=== PATIENT | male | born 1980 | race African-American/Black ===

== ENCOUNTER → 2021-12-28 | Outpatient (CLI) | payer MEDICAID, MEDICARE ==
--- NOTE | 2021-12-28 11:14 | Diagnostic Imaging Report ---
INDICATION: PAIN IN LEFT HIP TECHNIQUE: 2 views of the left hip. CORRELATION STUDY: None FINDINGS: Marked deformity about the left hip joint. There is a volume loss of particularly superior and central aspect of the left femoral head with partial collapse and cystic change. Involves the superior half of the femoral head. There is marked distortion with significant loss of joint space. A nearly vlmg-xp-zmah is present particularly superiorly. Overhanging osteophytes of the acetabulum. IMPRESSION: 1. Marked chronic deformity left hip. Imaging features favor probable rather advanced osteonecrosis left femoral head with partial collapse and volume loss of the femoral head. Associated is relatively advanced degenerative changes of the left hip. Dictated by: Dictated on workstation # [id number]
== END ==
LOC: ORTHO 10:50
PROVIDERS: ATTEND Orthopaedic Surgery
DX: M16.12 Unilateral primary osteoarthritis, left hip (principal)
CPT/HCPCS: 73502; 99203

== ENCOUNTER 2022-01-17 05:51 | Day surgery (SDC) | payer MEDICAID ==
[2022-01-17] VITALS (13 sets, daily range): BP systolic 99–144; BP diastolic 58–95
[~2022-01-17] VITALS: Ht 175 cm; Wt 68.2 kg
[~2022-01-17 05:51] MED LIST: DIVA250T2 PO; MELO10CA3 PO; SERT-413 PO
[2022-01-17] MEDS ORDERED: ceFAZolin INJECTION 1,000 MG VIAL IV ONE (06:15)
[2022-01-17] MEDS ORDERED: LACTATED RINGERS 1,000 ML IV PRN (06:15)
[2022-01-17] MEDS ORDERED: TRANEXAMIC ACID 3,000 MG/150 ML NS IRRIGATION IR ONE ×2 (06:45)
[2022-01-17] MEDS ORDERED: MIDAZOLAM 2 MG/2 ML (VERSED) VIAL ONE ×2 (07:03→07:12)
[2022-01-17] MEDS ORDERED: ONDANSETRON 4 MG/2 ML (SDV) Z0FRAN ONE (07:03)
[2022-01-17] MEDS ORDERED: fentaNYL INJ 100 MCG/2 ML AMP ONE ×2 (07:03→08:41)
[2022-01-17] MEDS ORDERED: SEVOFLURANE (ULTANE) 15 ML INHAL SOLN ONE ×2 (07:03→09:54)
[2022-01-17] MEDS ORDERED: LIDOCAINE PF 2% 5 ML (XYLOCAINE) VIAL ONE (07:03)
[2022-01-17] MEDS ORDERED: proPOfol 200 MG/20 ML (DIPRIVAN) VIAL IV ONE (07:03)
[2022-01-17] MEDS ORDERED: ROCURONIUM 50 MG/5 ML (ZEMURON) VIAL IV ONE (07:03)
--- NOTE | 2022-01-17 07:12 | Progress Note-Pre Operative ---
Pre-Operative Progress Note Date of Available H&P: Dec 28, 2021 Date H&P Reviewed: Jan 17, 2022 Time H&P Reviewed: 07:05 History & Physical: H&P Reviewed, Patient Examed, No changes noted Pre-Operative Diagnosis: Left Hip Avascular Necrosis MARY JAVIER MD Jan 17, 2022 07:12
[2022-01-17] MEDS ORDERED: MIDAZOLAM 2 MG/2 ML (VERSED) VIAL IVP ONE (07:15)
--- NOTE | 2022-01-17 08:48 | Diagnostic Imaging Report ---
INDICATION: Preoperative evaluation, prior left hip surgery. Left hip pain. COMPARISON: 12/28/2021 FINDINGS: 2 radiographic views of the left hip were obtained. There are advanced osteoarthritic changes consistent of severe joint space narrowing with mixed sclerotic and subchondral cystic changes of the articular surfaces, particularly involving the femoral head. Prominent osteophytes are also noted. No acute osseous abnormality is seen. No unexpected radiopaque foreign bodies are identified. IMPRESSION: 1. Advanced osteoarthritic changes of the left hip, but no acute fracture or dislocation. Dictated by: Dictated on workstation # [id number]
--- NOTE | 2022-01-17 10:12 | Anesthesia-General Post-Op ---
General Patient Condition Mental Status/LOC: Same as Preop Cardiovascular: Satisfactory Nausea/Vomiting: Absent Respiratory: Satisfactory Pain: Controlled Complications: Absent Post Op Complications Complications None Follow Up Care/Instructions Patient Instructions None needed. Anesthesia/Patient Condition Patient Condition Patient is doing well, no complaints, stable vital signs, no apparent adverse anesthesia problems. No complications reported per nursing. BRENNAN BLAKE CRNA Jan 17, 2022 10:12
[2022-01-17] MEDS ORDERED: MILK OF MAGNESIA 400 MG/5 ML 30 ML UDC PO PRN (10:15)
[2022-01-17] MEDS ORDERED: morphine INJ 10 MG/ML 1ML (SYR OR VIAL) IVP ONE (10:15)
[2022-01-17] MEDS ORDERED: ACETAMINOPHEN 500 MG TAB (TYLENOL) PO PRN (10:15)
[2022-01-17] MEDS ORDERED: ONDANSETRON 4 MG/2 ML (SDV) Z0FRAN IV PRN (10:15)
[2022-01-17] MEDS ORDERED: MEPERIDINE (DEMEROL) INJ 50 MG/ML IVP ONE (10:15)
[2022-01-17] MEDS ORDERED: BISACODYL 5 MG (DULCOLAX) TABLET PO PRN (10:15)
[2022-01-17] MEDS ORDERED: ONDANSETRON 4 MG/2 ML (SDV) Z0FRAN IVP PRN (10:15)
--- NOTE | 2022-01-17 10:15 | Operative Report - Ortho ---
Operative Report Surgeon (s)/Lens Grinder Apprentice (s) Surgeon MARY JAVIER MD Lens Grinder Apprentice n/a Pre-Operative Diagnosis Left Hip Avascular Necrosis Post-Operative Diagnosis same Operative Report Date of Procedure: Jan 17, 2022 Name of Procedure Performed: Left Total Hip Arthroplasty Description & Findings After obtaining informed consent and marking the patient in the preoperative holding area, the patient did receive antibiotics and was taken to the operating room. General anesthesia was induced and patient was positioned in the lateral decubitus position with the left side up. Left lower extremity was prepped and draped in the usual sterile fashion. Surgical timeout was taken. Posterolateral approach was utilized. Capsule and external rotators were taken down in one layer. Hip was dislocated without difficulty. Femoral neck osteotomy was performed and femoral head was removed. Acetabulum was exposed. Labrum and soft tissue was removed from the acetabulum. Sequential reaming was began beginning with a 47 mm reamer and reaming to a 52 mm. 52 mm trial was placed and had good fit. Trial was removed and the acetabulum was lavaged with normal saline; a 52 mm cup was impacted into place and had excellent press fit. A trial liner was put into place. Attention was turned to the femoral side, a [employer] cutter osteotome was used to removed bone near the greater trochanter. Canal finder was inserted followed by the lateralizing reamer. Sequential broaching was began with a 0 and was broached to a 5. Trial 127 degree neck and -5 mm head were put into place. Hip was located and was found to have leg lengths that were grossly equal; the hip was stable in position of sleep, and stable in flexion and internal rotation. This was accepted. Hip was dislocated. Acetabulum was exposed. Trial liner was removed and a polyethylene liner was locked into place; freer was used to check the locking mechanism. Attention was turned back to the femur, broach was removed and the canal was irrigated. A size 5 Accolade II was impacted into place and set at the same level as the broach. A -5 mm ceramic head was impacted onto the jones taper of the stem. Hip was once again located and found to have grossly equal leg lengths with stability in position of sleep as well as flexion and internal rotation. A dilute betadine soak was performed followed by irrigation. Tranexamic acid was applied for hemostasis. Capsular repair was performed with #2 fiberwire. The fascial layer was closed with #2 Stratafix. The subcutaneous layer was closed with 2-0 Vicryl. Skin was closed with V-loc. Wound was dressed with steri-strips, xeroform, 4x4s, ABD, and tape. Patient was placed in abduction pillow and transferred to his hospital bed without difficulty and was stable to the recovery room. Anesthesia Type General Estimated Blood Loss 200 ml Specimen(s) collected/removed None MARY JAVIER MD Jan 17, 2022 10:15
[2022-01-17] MEDS ORDERED: morphine INJ 10 MG/ML 1ML (SYR OR VIAL) ONE (10:16)
--- NOTE | 2022-01-17 10:33 | Diagnostic Imaging Report ---
INDICATION: Status post left hip replacement COMPARISON: Earlier same day FINDINGS: Single AP view of the pelvis was obtained. There are expected postsurgical changes of interval left total hip arthroplasty. There is appropriate anatomic alignment of the femoral component in relation to the acetabular component. Acetabular component appears well seated. The stem of the femoral component is located centrally in the medullary cavity. There is no periprosthetic fracture. No acute fracture or dislocation is identified. There is a small amount of subcutaneous emphysema in the surrounding soft tissues. No unexpected radiopaque foreign bodies identified. IMPRESSION: Expected postsurgical changes of interval left total hip arthroplasty. No unexpected radiopaque foreign body identified. Dictated by: Dictated on workstation # [id number]
[2022-01-17] MEDS ORDERED: HYDROmorphone 2 MG/ML VIAL (DILAUDID) ONE (10:53)
[2022-01-17] MEDS ORDERED: HYDROmorphone 2 MG/ML VIAL (DILAUDID) IV ONE (11:00)
[2022-01-17] MEDS ORDERED: NS IV 1000 ML 1,000 ML ONE (12:04)
[2022-01-17] MEDS: NS IV 1000 ML 1,000 ML IV SCH ×3 (12:08→20:11)
--- NOTE | 2022-01-17 13:56 | Physical Therapy Evaluation ---
PT Evaluation-General Medical Diagnosis Admission Date December Medical Diagnosis: left hip avascular necrosis Onset Date: Jan 17, 2022 Therapy Diagnosis Therapy Diagnosis: impaired mobility Precautions Precautions/Isolations: Fall Prevention, Standard Precautions Weight Bear Status Right Lower Extremity: Right Full Weight Bearing Left Lower Extremity: Left Weight Bearing/Tolerated posterior hip dislocation precautions Referral Physician: Bela Reason for Referral: Evaluation/Treatment Medical History History of Falls (past yr): No Prior Surgery (last 100 days): No Current History s/p left THR Reviewed History: Yes Social History Home: Single Level Current Living Status: Significant Other Entry Into Home: Stairs With Railing PT Steps Into Home: 5 Prior Prior Level of Function SCALE: Activities may be completed with or without assistive devices. 3-Mnytuckefx-ibrhyeu completes the activity by him/herself with no assistance from a helper. 5-Set-up or Clean-up Assistance-helper sets up or cleans up; patient completes activity. [place] assists only prior to or following the activity. 4-Supervision or Touching Assistance-helper provides verbal cues and/or touching/steadying and/or contact guard assistance as patient completes activity. Assistance may be provided throughout the activity or intermittently. 3-Partial/Moderate Assistance-helper does LESS THAN HALF the effort. [place] lifts, holds or supports trunk or limbs, but provides less than half the effort. 2-Substantial/Maximal Assistance-helper does MORE THAN HALF the effort. [place] lifts or holds trunk or limbs and provides more than half the effort. 8-Xsvmfulpm-zgghao does ALL the effort. Patient does none of the effort to complete the activity. Or, the assistance of 2 or more helpers is required for the patient to complete the activity. If activity was not attempted, code reason: 7-Patient Refused. 9-Not Applicable-not attempted and the patient did not perform the activity before the current illness, exacerbation or injury. 10-Not Attempted due to Environmental Limitations-(lack of equipment, weather restraints, etc.). 88-Not Attempted due to Medical Conditions or Safety Concerns. Bed Mobility: 6 Transfers (B,C,W/C): 6 Gait: 6 Stairs: 6 Indoor Mobility (Ambulation): Independent Stairs: Independent Prior Devices Use: Other-see list below Prior Device Use: cane PT Evaluation-Current Subjective Patient agrees to PT. Pain Numeric Pain Scale: 5-Moderate Pain Location: Left Location Body Site: Hip Pain Description: Acute Objective Patient Orientation: Normal For Age Attachments: Espinosa Catheter, IV abduction pillow ROM/Strength ROM Lower Extremities left posterior hip dislocation precautions/right LE WFL Strength Lower Extremities left LE 3-/5 grossly/right LE 4/5 grossly Integumentary/Posture Integumentary refer to nursing notes Bladder Incontinence: Espinosa Cath Posture WFL Neuromuscular (Tone, Coordination, Reflexes) grossly intact Sensory Vision: Functional Hearing: Functional Transfers Sit to Lying (QC): 3 Lying to Sitting/Side of Bed(Q: 3 Sit to Stand (QC): 4 Gait Mode of Locomotion: Walk Anticipated Mode of Locomotion: Walk Walk 10 feet (QC): 4 Walk 50 ft with 2 Turns(QC): 4 Distance: 50' Gait Assistive Device: FWW Comments/Gait Description minimal weight bearing left LE per patient choice/VC's for WBAT left LE Balance Sitting Static: Normal Sitting Dynamic: Normal Standing Static: Normal Standing Dynamic: Normal Assessment/Needs Patient will be seen short term by skilled PT to address functional strength and mobility to improve current LOF to ensure safe return to home with family at maximum LOF. Rehab Potential: Fair PT Capacity Management Specialist Goals Capacity Management Specialist Goals PT Senior Living Goals Time Frame: Jan 22, 2022 Roll Left & Right (QC): 6 Sit to Lying (QC): 6 Lying-Sitting on Side/Bed(QC): 6 Sit to Stand (QC): 6 Chair/Kah-xt-Sqyds Xfer(QC): 6 Toilet Transfer (QC): 6 Walk 10 feet (QC): 6 Walk 50ft with 2 Turns (QC): 6 Walk 150 ft (QC): 6 1 Step (curb) (QC): 6 4 Steps (QC): 6 PT Plan Problem List Problem List: Activity Tolerance, Safety, Bed Mobility Treatment/Plan Treatment Plan: Continue Plan of Care Treatment Plan: Bed Mobility, Education, Functional Activity Noé, Functional Strength, Gait, Safety, Therapeutic Exercise, Transfers Treatment Duration: Jan 22, 2022 Frequency: 11 times per week Estimated Hrs Per Day: .5 hour per day Patient and/or Family Agrees t: Yes Discharge Recommendations Therapy Discharge Recommendati: Home & Family Time/GCodes Time In: 1255 Time Out: 1312 Total Billed Treatment Time: 17 Total Billed Treatment 1 visit EVModC 17 min SAL MALONE PT Jan 17, 2022 13:56
[2022-01-17] MEDS: morphine INJ 4 MG/ML 1 ML (VIAL/SYRINGE) IVP PRN ×3 (15:16→23:35)
[2022-01-17] MEDS: ceFAZolin INJECTION 1,000 MG in NS (IVPB) 50 ML IV SCH ×2 (15:16→20:22)
[2022-01-17] MEDS: ASPIRIN E.C. 81 MG (ECOTRIN) TAB PO SCH (17:51)
[2022-01-17] MEDS: CELECOXIB 100 MG (CeleBREX) CAP PO SCH (20:21)
[2022-01-17] MEDS: DOCUSATE SODIUM 100 MG (COLACE) CAP PO SCH (20:22)
[2022-01-17] MEDS: MELATONIN 3 MG TABLET PO PRN (22:05)
[2022-01-18] VITALS (7 sets, daily range): BP systolic 102–135; BP diastolic 57–82
[2022-01-18] MEDS: RT-ALBUTEROL SULF 2.5 MG/3 ML PRE-MIX VIAL INH PRN (02:59)
[2022-01-18] MEDS: NS IV 1000 ML 1,000 ML IV SCH ×2 (04:01→12:24)
[2022-01-18] MEDS: morphine INJ 4 MG/ML 1 ML (VIAL/SYRINGE) IVP PRN ×4 (04:02→19:17)
[2022-01-18 05:49] LABS: HEMOGLOBIN 12.6 g/dL (13.3-17.7)
--- NOTE | 2022-01-18 08:15 | Progress Note - Ortho ---
Progress Note Subjective Date of Exam 01/18/22 Chief Complaint POD #1 L SYDNEE HPI/Events since last exam having some difficulty with pain, wants to be on side Review of Systems - Allergies: Coded Allergies: No Known Drug Allergies (Unverified , 01/11/22) Home Meds Reported Medications Sertraline HCl (Sertraline HCl) 50 Mg Tablet, 50 MG PO DAILY, TAB 01/11/22 Meloxicam, Submicronized (Meloxicam) 10 Mg Capsule, 15 MG PO, CAP 01/11/22 Divalproex Sodium (Depakote) Unknown Strength Tablet.dr, PO, TAB 01/11/22 Objective Exam L Hip: Dressing C/D/I, +DF of ankle, no s/s of DVT Vital Signs Vital Signs Date Time Temp Pulse Resp B/P (MAP) Pulse Ox O2 Delivery O2 Flow Rate FiO2 01/18/22 07:36 36.6 78 18 109/57 (74) 97 Room Air 01/18/22 07:07 99 Room Air 0.00 01/18/22 04:02 36.9 88 18 106/67 (80) 98 Room Air 01/18/22 03:00 99 Room Air 01/18/22 02:26 37.0 78 98 21 01/18/22 02:00 98 Room Air 0.00 01/17/22 23:59 37.0 78 18 102/69 (80) 98 Room Air 01/17/22 21:31 Room Air 0.00 01/17/22 20:21 Room Air 01/17/22 19:52 36.0 89 22 117/73 (88) 98 Room Air 01/17/22 15:46 37.3 75 20 105/58 (74) 100 Room Air 01/17/22 11:40 36.5 59 17 132/85 (101) 98 Room Air 01/17/22 11:10 36.3 14 138/88 (105) 99 Room Air 01/17/22 11:10 Room Air 01/17/22 11:05 Room Air 01/17/22 11:00 16 120/83 (95) 100 Room Air 01/17/22 10:50 20 132/65 (87) 100 OxyMask 4.00 01/17/22 10:50 OxyMask 4.00 01/17/22 10:40 10 105/77 (86) 100 OxyMask 4.00 01/17/22 10:35 OxyMask 8 01/17/22 10:30 10 114/89 (97) 100 OxyMask 4.00 01/17/22 10:20 OxyMask 8 01/17/22 10:20 12 144/89 (107) 100 OxyMask 8 01/17/22 10:10 16 99/89 (92) 100 OxyMask 8 01/17/22 10:06 36.6 16 108/76 (87) 100 OxyMask 8 01/17/22 10:06 OxyMask 8 I & O 01/18/22 07:00 Intake Total 3080 ml Output Total 5750 ml Balance -2670 ml Lab Results Laboratory Tests 01/18/22 05:30: Hemoglobin 12.6L, Hematocrit 37L Microbiology 01/17/22 MRSA Screen - Final, Complete MRSA not isolated Imaging Postop AP pelvis demonstrated appropriate position of components without complication Assessment and Plan Assessment Left Hip Avascular Necrosis s/p Total Hip Arthroplasty Problem List Left Hip Avascular Necrosis s/p Total Hip Arthroplasty Plan PT/OT DVT Prophylaxis Plan for D/C Home tomorrow Final Diagonsis Left Hip Avascular Necrosis s/p Total Hip Arthroplasty Level of the visit: Level 3 (postop global) MARY JAVIER MD Jan 18, 2022 08:15
[2022-01-18] MEDS: DOCUSATE SODIUM 100 MG (COLACE) CAP PO SCH ×2 (08:27→20:52)
[2022-01-18] MEDS: CELECOXIB 100 MG (CeleBREX) CAP PO SCH ×2 (08:27→20:52)
[2022-01-18] MEDS: ASPIRIN E.C. 81 MG (ECOTRIN) TAB PO SCH ×2 (08:27→17:30)
[2022-01-18] MEDS: SERTRALINE 50 MG (ZOLOFT) TABLET PO SCH (08:27)
--- NOTE | 2022-01-18 09:32 | Physical Therapy Daily Note ---
PT Daily Note-Current Subjective Patient reluctantly agrees to PT. Pain Numeric Pain Scale: 8 Location: Left Location Body Site: Hip Pain Description: Acute Comment: with med issued per RN Section J - Health Conditions 1. Rarely or not at all 2. Occasionally 3. Frequently 4. Almost constantly 8. Unable to answer Pain Effect on Sleep: 4 Pain Interference with Therapy: 4 Pain Interference w/Day-to-Day: 4 Mental Status Patient Orientation: Normal For Age Attachments: IV Transfers SCALE: Activities may be completed with or without assistive devices. 5-Gsqsjaomsn-lxodbji completes the activity by him/herself with no assistance from a helper. 5-Set-up or Clean-up Assistance-helper sets up or cleans up; patient completes activity. [place] assists only prior to or following the activity. 4-Supervision or Touching Assistance-helper provides verbal cues and/or touching/steadying and/or contact guard assistance as patient completes act ivity. Assistance may be provided throughout the activity or intermittently. 3-Partial/Moderate Assistance-helper does LESS THAN HALF the effort. [place] lifts, holds or supports trunk or limbs, but provides less than half the effort. 2-Substantial/Maximal Assistance-helper does MORE THAN HALF the effort. [place] lifts or holds trunk or limbs and provides more than half the effort. 5-Mlxnwcbcx-vfevrp does ALL the effort. Patient does none of the effort to complete the activity. Or, the assistance of 2 or more helpers is required for the patient to complete the activity. If activity was not attempted, code reason: 7-Patient Refused. 9-Not Applicable-not attempted and the patient did not perform the activity before the current illness, exacerbation or injury. 10-Not Attempted due to Environmental Limitations-(lack of equipment, weather restraints, etc.). 88-Not Attempted due to Medical Conditions or Safety Concerns. Lying to Sitting/Side of Bed(Q: 6 Sit to Stand (QC): 5 Chair/Nst-yx-Dxvqs Xfer(QC): 5 Weight Bearing Right Lower Extremity: Right Full Weight Bearing Left Lower Extremity: Left Weight Bearing/Tolerated posterior hip dislocation precautions Gait Training Distance: 250' Walk 10 feet (QC): 5 Walk 50 ft with 2 Turns(QC): 5 Walk 150 ft (QC): 5 Gait Assistive Device: FWW antalgic/reciprocal pattern Exercises Seated Therapy Exercises: Ankle pumps, Long arc quads Seated Reps: 15 Assessment Patient easily distracted with personal issues. PT to increase activity as allow by patient. Patient up in recliner with needs met. Reviewed posterior hip precautions. PT Senior Living Goals Senior Living Goals PT Technical Writer Goals Time Frame: Jan 22, 2022 Roll Left & Right (QC): 6 Sit to Lying (QC): 6 Lying-Sitting on Side/Bed(QC): 6 Sit to Stand (QC): 6 Chair/Ljj-tx-Badnk Xfer(QC): 6 Toilet Transfer (QC): 6 Walk 10 feet (QC): 6 Walk 50ft with 2 Turns (QC): 6 Walk 150 ft (QC): 6 1 Step (curb) (QC): 6 4 Steps (QC): 6 PT Plan Treatment/Plan Treatment Plan: Continue Plan of Care Treatment Plan: Bed Mobility, Education, Functional Activity Noé, Functional Strength, Gait, Safety, Therapeutic Exercise, Transfers Treatment Duration: Jan 22, 2022 Frequency: 11 times per week Estimated Hrs Per Day: .5 hour per day Patient and/or Family Agrees t: Yes Time/GCodes Time In: 900 Time Out: 916 Total Billed Treatment Time: 16 Total Billed Treatment 1 visit FA 16 min SAL MALONE PT Jan 18, 2022 09:32
--- NOTE | 2022-01-18 13:10 | Occupational Therapy Eval ---
OT Evaluation-General/PLF Medical Diagnosis Admission Date 01/17/22 Medical Diagnosis: left hip avascular necrosis Onset Date: Jan 17, 2022 Therapy Diagnosis Therapy Diagnosis: reduced adl status Precautions Precautions/Isolations: Fall Prevention, Standard Precautions Comments Posterior hip precautions Weight Bear Status Weight Bearing Restriction: Weight Bearing/Tolerated Location Restriction: L LE Referral Physician: Bela Referral Reason: Evaluation/Treatment Medical History Current History Post op day #1, s/p L SYDNEE. Per patient, he lives with his girlfriend in a single story home, 5 steps to enter. Pt reports that he was indep with adls prior to surgery. He used a cane at baseline. Reviewed History: Yes Social History Home: Single Level Current Living Status: Significant Other Entry Into Home: Stairs With Railing Steps Into Home: 5 ADL-Prior Level of Function SCALE: Activities may be completed with or without assistive devices. 7-Ygimzjblxr-tpouted completes the activity by him/herself with no assistance from a helper. 5-Set-up or Clean-up Assistance-helper sets up or cleans up; patient completes activity. [place] assists only prior to or following the activity. 4-Supervision or Touching Assistance-helper provides verbal cues and/or touching/steadying and/or contact guard assistance as patient completes activity. Assistance may be provided throughout the activity or intermittently. 3-Partial/Moderate Assistance-helper does LESS THAN HALF the effort. [place] lifts, holds or supports trunk or limbs, but provides less than half the effort. 2-Substantial/Maximal Assistance-helper does MORE THAN HALF the effort. [place] lifts or holds trunk or limbs and provides more than half the effort. 3-Soldtynig-tpycah does ALL the effort. Patient does none of the effort to complete the activity. Or, the assistance of 2 or more helpers is required for the patient to complete the activity. If activity was not attempted, code reason: 7-Patient Refused. 9-Not Applicable-not attempted and the patient did not perform the activity before the current illness, exacerbation or injury. 10-Not Attempted due to Environmental Limitations-(lack of equipment, weather restraints, etc.). 88-Not Attempted due to Medical Conditions or Safety Concerns. Self Care: Independent Functional Cognition: Independent DME/Equipment: Tub/Shower OT Current Status Subjective Pt is very distracted with personal issues at home. He is difficult to redirect. Appearance Pt left supine in bed, all needs within reach. Mental Status/Objective Patient Orientation: Person, Place, Situation Attachments: IV ADL-Treatment Eating (QC): 6 Oral Hygiene (QC): 5 Upper Body Dressing (QC): 5 (per clinical judgment) Pt supine in bed at OT arrival. He is unaware of hip precautions, thus OT educates and demonstrates on what not to do. Pt initially appears interested in learning about adaptive equipment but is very distracted with personal issues going on at home. He is difficult to redirect and does not follow therapists cues to initiate practice with AE. Pt often verbalizes "this is just too much information, I can't concentrate at this time." Emotional support and therapeutic listening provided. OT will attempt practice with AE next session. Education OT Patient Education: Correct positioning, Modified ADL techniques, Purpose of tx/functional activities, Safety issues, Use of adapted equipment Teaching Recipient: Patient Teaching Methods: Demonstration, Discussion Response to Teaching: Reinforcement Needed OT Scrubbing Machine Operator Goals Scrubbing Machine Operator Goals Time Frame: Jan 25, 2022 Upper Body Dressing (QC): 5 Lower Body Dressing (QC): 4 On/Off Footwear (QC): 4 1=Demonstrate adherence to instructed precautions during ADL tasks. 2=Patient will verbalize/demonstrate understanding of assistive devices/modifications for ADL. 3=Patient will improve strength/tolerance for activity to enable patient to perform ADL's. OT Education/Plan Problem List/Assessment Assessment: Decreased Safety Aware, Impaired I ADL's, Impaired Self-Care Skills Discharge Recommendations Plan/Recommendations: Continue POC Equpiment Recommendations-D/C: Older Worker Specialist, Hip Kit, Sock Aide Treatment Plan/Plan of Care Treatment,Training & Education: Yes Patient would benefit from OT for education, treatment and training to promote independence in ADL's, mobility, safety and/or upper extremity function for ADL's. Plan of Care: ADL Retraining, Functional Mobility, UE Funct Exercise/Act Treatment Duration: Jan 25, 2022 Frequency: 5 times per week Estimated Hrs Per Day: .25 hour per day Rehab Potential: Fair Time/GCodes Start Time: 11:50 Stop Time: 12:07 Total Time Billed (hr/min): 17 Billed Treatment Time 1 visit Mariana Feliz OT Jan 18, 2022 13:10
--- NOTE | 2022-01-18 13:51 | Physical Therapy Daily Note ---
PT Daily Note-Current Subjective Patient agrees to PT. Pain Numeric Pain Scale: 5-Moderate Pain Location: Left Location Body Site: Hip Pain Description: Acute Section J - Health Conditions 1. Rarely or not at all 2. Occasionally 3. Frequently 4. Almost constantly 8. Unable to answer Pain Effect on Sleep: 2 Pain Interference with Therapy: 2 Pain Interference w/Day-to-Day: 2 Mental Status Patient Orientation: Normal For Age Transfers SCALE: Activities may be completed with or without assistive devices. 2-Xqfovbahgt-lfozxrh completes the activity by him/herself with no assistance from a helper. 5-Set-up or Clean-up Assistance-helper sets up or cleans up; patient completes activity. [place] assists only prior to or following the activity. 4-Supervision or Touching Assistance-helper provides verbal cues and/or touching/steadying and/or contact guard assistance as patient completes activity. Assistance may be provided throughout the activity or intermittently. 3-Partial/Moderate Assistance-helper does LESS THAN HALF the effort. [place] lifts, holds or supports trunk or limbs, but provides less than half the effort. 2-Substantial/Maximal Assistance-helper does MORE THAN HALF the effort. [place] lifts or holds trunk or limbs and provides more than half the effort. 8-Qmkqgrnmd-tlprfl does ALL the effort. Patient does none of the effort to complete the activity. Or, the assistance of 2 or more helpers is required for the patient to complete the activity. If activity was not attempted, code reason: 7-Patient Refused. 9-Not Applicable-not attempted and the patient did not perform the activity before the current illness, exacerbation or injury. 10-Not Attempted due to Environmental Limitations-(lack of equipment, weather restraints, etc.). 88-Not Attempted due to Medical Conditions or Safety Concerns. Lying to Sitting/Side of Bed(Q: 6 Sit to Stand (QC): 6 Chair/Ppy-jc-Pikcd Xfer(QC): 6 Weight Bearing Right Lower Extremity: Right Full Weight Bearing Left Lower Extremity: Left Weight Bearing/Tolerated posterior hip dislocation precautions Gait Training Distance: 400' Walk 10 feet (QC): 5 Walk 50 ft with 2 Turns(QC): 5 Walk 150 ft (QC): 5 Gait Assistive Device: FWW slow, reciprocal pattern Exercises Seated Therapy Exercises: Long arc quads Seated Reps: 15 Assessment Patient progressing with treatment plan and will dismiss to home tomorrow per report. PT to continue to review hip precautions and increase activity as tolerated by patient. 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 Retirement Goals PT Retirement Goals Time Frame: Jan 22, 2022 Roll Left & Right (QC): 6 Sit to Lying (QC): 6 Lying-Sitting on Side/Bed(QC): 6 Sit to Stand (QC): 6 Chair/Mts-ij-Prfua Xfer(QC): 6 Toilet Transfer (QC): 6 Walk 10 feet (QC): 6 Walk 50ft with 2 Turns (QC): 6 Walk 150 ft (QC): 6 1 Step (curb) (QC): 6 4 Steps (QC): 6 PT Plan Treatment/Plan Treatment Plan: Continue Plan of Care Treatment Plan: Bed Mobility, Education, Functional Activity Noé, Functional Strength, Gait, Safety, Therapeutic Exercise, Transfers Treatment Duration: Jan 22, 2022 Frequency: 11 times per week Estimated Hrs Per Day: .5 hour per day Patient and/or Family Agrees t: Yes Time/GCodes Time In: 1330 Time Out: 1345 Total Billed Treatment Time: 15 Total Billed Treatment 1 visit FA 15 min SAL MALONE PT Jan 18, 2022 13:51
[2022-01-18] MEDS ORDERED: NICOTINE 14 MG (NICODERM) PATCH TD NR (14:30)
[2022-01-18] MEDS: MELATONIN 3 MG TABLET PO PRN (20:52)
[2022-01-19 04:00] VITALS: BP 111/56
[2022-01-19] MEDS: RT-ALBUTEROL SULF 2.5 MG/3 ML PRE-MIX VIAL INH PRN (04:11)
[2022-01-19 06:10] LABS: HEMOGLOBIN 12.1 g/dL (13.3-17.7)
[2022-01-19 07:36] VITALS: BP 113/71
[2022-01-19] MEDS: SERTRALINE 50 MG (ZOLOFT) TABLET PO SCH (08:47)
[2022-01-19] MEDS: CELECOXIB 100 MG (CeleBREX) CAP PO SCH (08:47)
[2022-01-19] MEDS: ASPIRIN E.C. 81 MG (ECOTRIN) TAB PO SCH (08:47)
[2022-01-19] MEDS: DOCUSATE SODIUM 100 MG (COLACE) CAP PO SCH (08:47)
--- NOTE | 2022-01-19 08:48 | Physical Therapy Daily Note ---
PT Daily Note-Current Subjective Patient sitting EOB pre tx, agrees to PT, has 8/10 pain in left hip, nurse notified of pain. Pain Section J - Health Conditions 1. Rarely or not at all 2. Occasionally 3. Frequently 4. Almost constantly 8. Unable to answer Pain Effect on Sleep: 2 Pain Interference with Therapy: 2 Pain Interference w/Day-to-Day: 2 Appearance Patient sitting in recliner post tx with nurse call, phone, tray, all needs met. Mental Status Patient Orientation: Person, Place, Situation Transfers SCALE: Activities may be completed with or without assistive devices. 5-Stnxdyksqw-hhjpvmo completes the activity by him/herself with no assistance from a helper. 5-Set-up or Clean-up Assistance-helper sets up or cleans up; patient completes activity. [place] assists only prior to or following the activity. 4-Supervision or Touching Assistance-helper provides verbal cues and/or touching/steadying and/or contact guard assistance as patient completes activity. Assistance may be provided throughout the activity or intermittently. 3-Partial/Moderate Assistance-helper does LESS THAN HALF the effort. [place] lifts, holds or supports trunk or limbs, but provides less than half the effort. 2-Substantial/Maximal Assistance-helper does MORE THAN HALF the effort. [place] lifts or holds trunk or limbs and provides more than half the effort. 3-Rqdmoxcem-nlisok does ALL the effort. Patient does none of the effort to complete the activity. Or, the assistance of 2 or more helpers is required for the patient to complete the activity. If activity was not attempted, code reason: 7-Patient Refused. 9-Not Applicable-not attempted and the patient did not perform the activity before the current illness, exacerbation or injury. 10-Not Attempted due to Environmental Limitations-(lack of equipment, weather restraints, etc.). 88-Not Attempted due to Medical Conditions or Safety Concerns. Sit to Stand (QC): 6 Chair/Kbr-re-Xgayd Xfer(QC): 6 Weight Bearing Right Lower Extremity: Right Full Weight Bearing Left Lower Extremity: Left Weight Bearing/Tolerated posterior hip dislocation precautions Gait Training Distance: 300' Walk 10 feet (QC): 6 Walk 50 ft with 2 Turns(QC): 6 Walk 150 ft (QC): 6 Gait Assistive Device: FWW antalgic ambulation but steady, independent with ambulation, good compliance with hip pre cautions Exercises Seated Therapy Exercises: Long arc quads Seated Reps: 6 (pain prevented further exercise) Treatments transfers, ambulation, LE ROM Assessment Current Status: Fair Progress pain with activity 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 Snf Goals PT Snf Goals Time Frame: Jan 22, 2022 Roll Left & Right (QC): 6 Sit to Lying (QC): 6 Lying-Sitting on Side/Bed(QC): 6 Sit to Stand (QC): 6 Chair/Jhc-ah-Kbdzg Xfer(QC): 6 Toilet Transfer (QC): 6 Walk 10 feet (QC): 6 Walk 50ft with 2 Turns (QC): 6 Walk 150 ft (QC): 6 1 Step (curb) (QC): 6 4 Steps (QC): 6 PT Plan Problem List Problem List: Activity Tolerance, Functional Strength, Safety, Balance, Gait, Transfer, Bed Mobility, ROM Treatment/Plan Treatment Plan: Continue Plan of Care Treatment Plan: Bed Mobility, Education, Functional Activity Noé, Functional Strength, Gait, Safety, Therapeutic Exercise, Transfers Treatment Duration: Jan 22, 2022 Frequency: 11 times per week Estimated Hrs Per Day: .5 hour per day Patient and/or Family Agrees t: Yes Safety Risks/Education Patient Education: Gait Training, Transfer Techniques, Correct Positioning, Safety Issues Teaching Recipient: Patient Teaching Methods: Demonstration, Discussion Response to Teaching: Reinforcement Needed Time/GCodes Time In: 825 Time Out: 835 Total Billed Treatment Time: 10 Total Billed Treatment 1 visit FA VERO LEMUS PT Jan 19, 2022 08:48
[2022-01-19] MEDS: NICOTINE 14 MG (NICODERM) PATCH TD SCH ×2 (08:50→09:14)
[2022-01-19] MEDS ORDERED: NICOTINE PATCH REMOVAL TP SCH (08:59)
[2022-01-19] MEDS: morphine INJ 4 MG/ML 1 ML (VIAL/SYRINGE) IVP PRN (10:36)
[2022-01-19] MEDS ORDERED: OXC5T PO (11:50)
[2022-01-19] MEDS ORDERED: ASPI-1238 PO (11:50)
--- NOTE | 2022-01-19 11:53 | D/C HH Face to Face Order ---
D/C Face to Face Orders Instructions for Patient [facility], Patient Instructions/FollowUp: WBAT with walker; Posterior hip dislocation precautions; dry dressing daily; do not get incision site wet until after follow up in office Physician to follow Patient: Mike Cramer Discharge Diet for Home: No Restrictions Patient Data-Allergies,Ht & Wt Patient Allergies: Coded Allergies: No Known Drug Allergies (Unverified , 01/11/22) Home Health Need/Face to Face Date of Face to Face: Jan 19, 2022 Clinical Findings: Muscle weakness, Pain with ambulation I have seen Pt csrk-vz-gebu: Yes Discharged To: Home Diagnosis/Conditions: Left Hip Avascular Necrosis s/p SYDNEE Patient is Homebound due to: Muscle weakness, Pain w/ambulation Homebound Status Due to the above stated illness, injury or surgical procedure (medical condition or diagnosis) and associated clinical findings, the patient is homebound because of his/her inability to leave home except with aid of a supportive device and/or person AND leaving the home requires a considerable and taxing effort or is medically contraindicated. Pt req the following assistanc: Walker Home Health Nursing Orders Home Health Services Order: Physical Therapy-Evaluate & Treat Home Health Infusion Therapy Line Start Date: Jan 17, 2022 Therapy Orders Therapy Orders: Physical Therapy Therapy Specific Orders: Gait training, Increase strength/endurance, Restore ROM Certify Stmt I certify that this patient is under my care and that I, a nurse practitioner or a physician; a cable splicer assistant working with me, had a face to face encounter that - meets the physician face to face encounter requirements with this patient as dated. MIKE CRAMER MD Jan 19, 2022 11:53
--- NOTE | 2022-01-19 11:56 | Discharge Summary ---
Discharge Summary Hospital Course Hospital Course Date of Admission: 01/17/22 Admission Diagnosis : Left Hip Avascular Necrosis Family Physician/Provider: Date of Discharge: 01/19/22 Discharge Diagnosis: [Left Hip Avascular Necrosis ] Hospital Course: [ On 01/17/22, patient underwent left total hip arthroplasty. Postoperatively, admitted to the regular floor. Mechanical DVT prophylaxis was began. Began to mobilize that afternoon. On POD #1, had some difficulty with pain control. Made progress with therapy. Arrangements were made for home health. On POD #2, pain control was improved and was ambulating over 100'. Tolerating a regular diet. Ready for discharge home with home health.] Labs and Pending Lab Test: Laboratory Tests 01/19/22 05:41: Hemoglobin 12.1L, Hematocrit 36L Microbiology 01/17/22 MRSA Screen - Final, Complete MRSA not isolated Home Meds Active Oxyir Tablet (Oxycodone HCl) 5 Mg Tab 5 Mg PO Q4H PRN 7 Days Aspirin EC (Aspirin) 81 Mg Tablet. 81 Mg PO BID WITH MEALS 30 Days Reported Sertraline HCl 50 Mg Tablet 50 Mg PO DAILY Meloxicam (Meloxicam, Submicronized) 10 Mg Capsule 15 Mg PO Depakote (Divalproex Sodium) Unknown Strength Tablet. Unknown Dose PO Assessment/Pt Instructions WBAT with walker; Posterior hip dislocation precautions; dry dressing daily; do not get incision site wet until after follow up in office Discharge Physical Examination Vital Signs Vital Signs Date Time Temp Pulse Resp B/P (MAP) Pulse Ox O2 Delivery O2 Flow Rate FiO2 01/19/22 07:36 35.9 92 18 113/71 (85) 99 Room Air 01/18/22 20:30 0.00 01/18/22 02:26 21 Extremity: Other (Incision C/D/I, +DF of ankle, no s/s of DVT) Allergies: Coded Allergies: No Known Drug Allergies (Unverified , 01/11/22) Discharge Summary Date of Admission Date of Discharge MARY JAVIER MD Jan 19, 2022 11:56
[2022-01-19 11:58] VITALS: BP 108/68
[2022-01-19 12:20] VITALS: BP 108/68
== END 2022-01-19 13:06 | disposition home or self-care (01) ==
LOC: SDC 05:51 → EDSTATUS 07:30 → 4TH 11:20 → SDC 01-19 13:06
PROVIDERS: ATTEND Orthopaedic Surgery
DX: M87.052 Idiopathic aseptic necrosis of left femur (principal); F17.210 Nicotine dependence, cigarettes, uncomplicated
CPT/HCPCS: 36415; 72170; 73502; 85014; 85018; 86850; 86900; 86901; 87081

== ENCOUNTER → 2022-02-08 | Outpatient (CLI) | payer MEDICAID ==
[~2022-02-08] MED LIST changes: +ASPI-1238 PO; +OXC5T PO
== END ==
LOC: ORTHO 14:45
PROVIDERS: ATTEND Orthopaedic Surgery
DX: Z47.89 Encounter for other orthopedic aftercare (principal)